=== PATIENT | male | born 1985 | race Caucasian/White ===

== ENCOUNTER 2016-10-31 06:41 | Emergency (ER) | payer BC ==
[2016-10-31] MEDS ORDERED: ACETAMINOPHEN 500 MG TABLET PO ONE (06:54)
[2016-10-31] MEDS ORDERED: ALBUTEROL SULFATE/IPRATROPIUM 3 ML NEBU IH ONE ×2 (06:55→06:56)
--- NOTE | 2016-10-31 07:09 | ERNOTE ---
Time Seen by Provider: 10/31/16 06:53 Stated Complaint: URI Presenting Symptoms:: cough Source: patient Exam Limitations: no limitations Immunizations: IMMUNIZATION HX Immunizations Up to Date Yes History of Influenza Vaccine No Hx Pneumococcal Vaccination No Allergies/Adverse Reactions: Allergies No Known Allergies Allergy (Verified 10/31/16 06:51) Home Medications: HOME MEDICATIONS Multivitamin with Folic Acid [One Daily Multivitamin Tablet] 400 mcg PO DAILY [Last Taken Unknown] Azithromycin [Zithromax] 250 mg PO DAILY #1 tablet 10/31/16 [Last Taken Unknown] Guaifenesin/Codeine Phosphate [Guaifenesin-Codeine Liquid] 5 ml PO HS PRN #120 liquid 10/31/16 [Last Taken Unknown] - History of Present Ilness Narrative: Pt comes in for cough and congestion for two days. He had a bout of sinusitis for which he was treated. He now has cough and fever and chills. Denies any shortness of breath and has not taken any medication for his cough Review of Systems - Review of Systems Constitutional: Present: See HPI, fever, chills EYE: Present: no symptoms reported ENT: Present: See HPI Respiratory: Present: See HPI, cough Cardiology: Present: no symptoms reported Gastrointestinal/Abdominal: Present: no symptoms reported Musculoskeletal: Present: no symptoms reported Skin: Present: no symptoms reported - Patient's Past Medical History Patient History - Medical: Other Patient History - Cancer: No Hx of Cancer Patient History - Surgical Procedures: Ear Tubes, T & A Patient History - Other: None - Family History Brother Family History - Medical: Diabetes Type 1, Renal Failure Family History - Cardiac/Respiratory: Pneumonia Sister Family History - Medical: Diabetes Type 1 - Social History Living Situations: home Alcohol Use: none Drug Use: none - Immunizations Immunizations Up to Date: Yes Hx Pneumococcal Vaccination: No History of Influenza Vaccine: No Physical Exam - Physical Exam General Appearance: Present: wd/wn, alert, no apparent distress Eye Exam: Normal inspection: bilateral, PERRL: bilateral, EOMI: bilateral Ears, Nose, Throat: Present: normal ENT inspection Neck: Present: normal inspection, nontender Respiratory: Present: no respiratory distress, chest nontender, other - pt has a deep cough when taking a deep breath. It sounds productive, he does have some end expiratory wheezing as well. No respiratory distress at this time. ED Progress - Vital Signs Patient's Vital Signs:: I have reviewed the patient's vital signs. Vital Signs: Vital Signs 10/31/16 06:46 Temperature 38.4 C H Pulse Rate 122 H Respiratory 14 Rate Blood Pressure 154/107 O2 Sat by Pulse 94 Oximetry - Progress/Reassessment Chief Complaint: Upper Respiratory Symptoms Plan - Plan Plan: pt appears to have bronchitis with bronchospasm. Will treat fever and Bronchitis as appropriate. Departure - Departure Clinical Impression: Acute bronchitis Qualifiers: Bronchitis organism: unspecified organism Qualified Code(s): J20.9 - Acute bronchitis, unspecified Disposition: Home self-care Condition: Fair Instructions: Bronchospasm, Adult Prescriptions: Azithromycin [Zithromax] 250 mg PO DAILY #1 tablet Guaifenesin/Codeine Phosphate [Guaifenesin-Codeine Liquid] 5 ml PO HS PRN #120 liquid PRN Reason: Cough
[2016-10-31 07:16] VITALS: BP 147/91
== END 2016-10-31 07:21 | disposition home or self-care (01) ==
LOC: ER 06:41
DX: J20.9 Acute bronchitis, unspecified (principal)